=== PATIENT | female | born 1990 | race Caucasian/White ===

== ENCOUNTER 2021-02-08 08:33 | Emergency (ER) | payer OTHER, MEDICAID ==
[~2021-02-08] VITALS: Ht 167.6 cm; Wt 124.7 kg
[2021-02-08 09:04] LABS: ABSOLUTE BASOPHILS 0.1 thou/uL (0.0-0.2); ABSOLUTE EOSINOPHILS 0.1 thou/uL (0.0-0.7); ABSOLUTE LYMPHOCYTES 2.5 thou/uL (0.8-5.3); ABSOLUTE MONOCYTES 0.5 thou/uL (0.0-1.2); ABSOLUTE NEUTROPHILS 4.5 thou/uL (1.6-8.1); BASOPHILS 0.7 %; EOSINOPHILS 1.8 %; HEMOGLOBIN 9.8 gm/dL (12.0-15.0); LYMPHOCYTES 32.3 %; MCH 23.3 pg (26.0-34.0); MCHC 31.7 g/dL (28.0-37.0); MCV 73.4 fL (80.0-100.0); MONOCYTES 7.1 %; MPV 8.4 fl. (7.2-11.1); NUCLEATED RBCS 0 /100WBC; PLATELET COUNT* 295 thou/uL (150-400); POLYS 58.1 %; RBC 4.23 mil/uL (4.20-5.00); RDW-CV 16.1 % (10.5-14.5); WBC 7.7 thou/uL (4.0-11.0)
[2021-02-08 09:13] LABS: ANION GAP 8 mmol/L (7-16); BUN 17 mg/dL (7-18); CALCIUM 8.9 mg/dL (8.5-10.1); CHLORIDE 105 mmol/L (98-107); CO2 27 mmol/L (21-32); CREATININE 0.5 mg/dL (0.6-1.3); GLUCOSE 179 mg/dL (70-99); POTASSIUM 3.5 mmol/L (3.5-5.1); SODIUM 140 mmol/L (136-145)
[2021-02-08 09:17] LABS: APTT 23.6 Seconds (25.0-31.3); PROTIME 10.7 Seconds (9.20-11.50)
[2021-02-08 09:28] LABS: ALBUMIN 3.1 g/dL (3.4-5.0); ALKALINE PHOSPHATASE 100 U/L (46-116); LIPASE 124 U/L (73-393); MAGNESIUM 1.6 mg/dL (1.8-2.4); NT-PRO BRAIN NAT PEPTIDE 17 pg/mL (<300); SGOT 31 U/L (15-37); SGPT 57 U/L (30-65); TOTAL BILIRUBIN 0.4 mg/dL (<0.1-1.0); TOTAL PROTEIN 6.8 g/dL (6.4-8.2)
[2021-02-08 09:29] LABS: CK-MB MASS < 0.5 ng/mL (<0.5-3.6)
[2021-02-08] MEDS ORDERED: HYDROCODON-ACE1 EAC7 PO (11:31)
[2021-02-08] MEDS ORDERED: ZOFRAN ODT4 MG SUBLING (11:31)
[2021-02-08 11:42] VITALS: BP 97/31
--- NOTE | 2021-02-09 11:09 | EKG ---
[place] [address] ELECTROCARDIOGRAM REPORT Name: KARELY REYES Room: [facility]#: [id number] Admission: 02/08/21 Attend Phys: Discharge: 02/08/21 Date of : 89 Date of Service: 02/08/21 0837 Report #: [id number] THIS REPORT FOR: //name// [facility] ED Test Date: 2021-02-08 Test Time: 08:37:42 Pat Name: KARELY REYES Department: Room: Gender: F Pumper Gauger: ALEX : 1990 Requested By: Bravo Blanton Order Number: [id number] MD: Catracho Teague Measurements Intervals Protection Rate: 69 P: 31 MI: 154 QRS: 54 QRSD: 93 T: 39 QT: 427 QTc: 458 Interpretive Statements Sinus rhythm Baseline wander in lead(s) II,III,aVR,aVL,aVF,V1,V2,V4,V5,V6 No previous ECG available for comparison Electronically Signed On 02-09-2021 11:09:05 CDT by Catracho Teague [email or web address] <ELECTRONICALLY SIGNED> By: Catracho Teague MD, [facility] 02/09/21 1109 0837 0837 Catracho Teague MD, [facility] /EPI
== END 2021-02-08 11:42 | disposition home or self-care (01) ==
LOC: M.ERS 08:33
PROVIDERS: Family Medicine
DX: R07.89 Other chest pain (principal); R10.13 Epigastric pain

== ENCOUNTER 2021-02-11 16:26 | Inpatient (IN) | payer OTHER, MEDICAID ==
[~2021-02-11] VITALS: Ht 167.6 cm; Wt 122.5 kg
--- NOTE | ~2021-02-11 | OP ---
[facility] [address] [place] [address] OPERATIVE REPORT Name: KARELY REYES Room: [address] IN M.R.#: [id number] Admission: 02/11/21 Attend Phys: Lauri Pruitt Discharge: Date of : 89 Report #: [id number] THIS REPORT FOR: cc: Warner Mendenhall Kent DO ~ Patterson, Jonathan D. MD DATE OF SERVICE: 02/13/2021 PREOPERATIVE DIAGNOSIS: Acute cholecystitis with a dilated common bile duct. POSTOPERATIVE DIAGNOSES: Acute cholecystitis with a dilated common bile duct, choledocholithiasis. OPERATION: Laparoscopic cholecystectomy with intraoperative cholangiogram. SURGEON: Lauri Pruitt MD ANESTHESIA: General. ESTIMATED BLOOD LOSS: Minimal. SPECIMEN: Gallbladder. DESCRIPTION OF PROCEDURE: After informed consent was obtained, the patient was brought to the operating room and placed supine. SCDs were placed and working, preoperative antibiotics were administered, general anesthesia was induced. The abdomen was prepped and draped in the usual sterile fashion. A 10 mm incision was made above the umbilicus. Fascia was incised and a trocar was placed. Pneumoperitoneum was established. Three right upper quadrant 5 mm ports were placed. Gallbladder was grasped at the fundus and retracted cephalad. Infundibulum was grasped and retracted laterally. I dissected out the cystic duct and cystic artery. The cystic duct was clipped. A ductotomy was made. Cholangiogram catheter was inserted. Cholangiogram was performed. This demonstrated filling of the cystic duct, common bile duct, common hepatic duct, bifurcation of the hepatics. There were small filling defects in the distal common bile duct and the common bile duct was dilated. The catheter was then removed. The cystic duct was clipped and ligated leaving 2 clips on the remaining duct. The cystic artery was clipped and ligated leaving one clip on the remaining artery. Gallbladder was then taken off the liver bed with electrocautery. It was placed into an Endopouch and removed. Fascia was then closed with a [id number] 0 Vicryl. Skin was closed with 4-0 Monocryl. Incisions were dressed with Steri-Strips. COMPLICATIONS: [place] [address] OPERATIVE REPORT Name: KARELY REYES Room: [address]#: [id number] Admission: 02/11/21 Attend Phys: Lauri Pruitt Discharge: Date of : 89 Report #: [id number] DISPOSITION: The patient was taken to recovery in satisfactory condition. By: 1923 1937Lauri Pruitt MD /evan
[~2021-02-11 16:26] MED LIST: HYDROCODON-ACE1 EAC7 PO; ZOFRAN ODT4 MG SUBLING
[2021-02-11 16:58] LABS: URINE BILIRUBIN NEGATIVE (Negative); URINE BLOOD TRACE (Negative); URINE CLARITY CLEAR; URINE COLOR YELLOW; URINE GLUCOSE-RANDOM NEGATIVE (Negative); URINE KETONES NEGATIVE (Negative); URINE NITRITE-REFLEX NEGATIVE (Negative); URINE PROTEIN NEGATIVE (Negative); URINE SPECIFIC GRAVITY >= 1.030 (1.005-1.030)
[2021-02-11 16:59] LABS: URINE LEUKOCYTES-REFLEX 2+ (Negative)
[2021-02-11 17:02] LABS: ABSOLUTE EOSINOPHILS 0.1 thou/uL (0.0-0.7); ABSOLUTE LYMPHOCYTES 1.2 thou/uL (0.8-5.3); ABSOLUTE MONOCYTES 0.3 thou/uL (0.0-1.2); ABSOLUTE NEUTROPHILS 3.9 thou/uL (1.6-8.1); BASOPHILS 0.3 %; HEMATOCRIT 30.9 % (37.0-47.0); LYMPHOCYTES 21.6 %; MCH 23.8 pg (26.0-34.0); MCHC 32.6 g/dL (28.0-37.0); MCV 73.3 fL (80.0-100.0); MONOCYTES 5.9 %; MPV 8.2 fl. (7.2-11.1); NUCLEATED RBCS 0 /100WBC; PLATELET COUNT* 261 thou/uL (150-400); POLYS 71.2 %; RBC 4.21 mil/uL (4.20-5.00); RDW-CV 15.9 % (10.5-14.5); WBC 5.5 thou/uL (4.0-11.0)
[2021-02-11 17:03] LABS: BACTERIA-REFLEX 1-9 Few /HPF (None Seen); CASTS None Seen /LPF (None Seen); CRYSTALS None Seen /LPF (None Seen); MUCUS None Seen strn/LPF (None Seen); SQUAMOUS >10 Many /LPF (0-3); URINE RBC 0-2 Rare /HPF (0-2); URINE WBC-REFLEX >25 Many /HPF (0-5)
[2021-02-11 17:05] LABS: AMP/METHAMP Negative (Negative); BARBITURATES Negative (Negative); BENZODIAZEPINES Negative (Negative); COCAINE Negative (Negative); METHADONE Negative (Negative); OPIATES POSITIVE (Negative); PCP Negative (Negative); THC Negative (Negative)
[2021-02-11 17:06] LABS: CREATININE 0.6 mg/dL (0.6-1.3); POTASSIUM 3.5 mmol/L (3.5-5.1)
[2021-02-11 17:10] LABS: ALBUMIN 3.4 g/dL (3.4-5.0); TOTAL BILIRUBIN 0.5 mg/dL (<0.1-1.0); TOTAL PROTEIN 7.5 g/dL (6.4-8.2)
[2021-02-11 18:32] VITALS: BP 122/49
[2021-02-11 19:36] VITALS: BP 113/44
[2021-02-12 00:05] VITALS: BP 120/48
[2021-02-12 07:50] LABS: ALBUMIN 2.7 g/dL (3.4-5.0); CALCIUM 8.3 mg/dL (8.5-10.1); CREATININE 0.5 mg/dL (0.6-1.3); TOTAL BILIRUBIN 0.6 mg/dL (<0.1-1.0); TOTAL PROTEIN 6.4 g/dL (6.4-8.2)
[2021-02-12 08:05] VITALS: BP 132/72
[2021-02-12 15:59] VITALS: BP 114/48
[2021-02-12 20:35] VITALS: BP 134/67
[2021-02-13 00:28] VITALS: BP 101/59
[2021-02-13 07:30] VITALS: BP 118/63
[2021-02-13 12:15] VITALS: BP 132/72
[2021-02-13 15:31] VITALS: BP 127/72
[2021-02-13 19:50] VITALS: BP 111/58
[2021-02-14 00:16] VITALS: BP 127/44
[2021-02-14 04:35] VITALS: BP 133/52
[2021-02-14 15:30] VITALS: BP 134/65
[2021-02-14 20:00] VITALS: BP 148/74
[2021-02-14 20:44] VITALS: BP 148/74
[2021-02-15] VITALS (7 sets, daily range): BP systolic 133–158; BP diastolic 59–79
--- NOTE | 2021-02-17 13:08 | PATH ---
[address] [address] PATHOLOGY RPT PROCEDURE Name: KARELY REYES Room: [address] IN [facility].#: [id number] Admission: 02/11/21 Date of : [birth year] Discharge: 02/15/21 Report #: [id number] Path Case #: [id number] [facility] Accession Number: [id number] . 01 Material submitted: . gallbladder - GALLBLADDER . 01 Clinical history: . GALLBLADDER WITH CONTENTS ACUTE CHOLECYSTITIS LAPAROSCOPIC CHOLECYSTECTOMY WITH GRAMS . 02 Diagnosis: Gallbladder: - Chronic cholecystitis with abundance of eosinophils of unknown etiology. . (STEPHANIE:mml; 02/16/2021) [facility] 02/16/2021 1730 Local . 02 Electronically signed: . Sal Emerson MD, Pathologist NPI- [id number] . 01 Gross description: . Fixative: Formalin Labeled: Gallbladder Specimen received: Intact gallbladder Dimensions: 10.7 x 4.7 x 3.5 cm Serosa: Blue-santacruz Mucosa: Velvety, bile-stained Average wall thickness: 0.1 cm Calculi: Not identified Abnormalities: None identified . Cardiac/Vascular Sonographer body, fundus, and the cystic duct margin in A1. (CAA; 02/15/2021) [facility] 02/15/2021 1234 Local . 02 Pathologist provided ICD-10: K81.1 . 02 CPT . 491992 Specimen Comment: A courtesy copy of this report has been sent to [phone] Specimen Comment: Report sent to Performed at: [address] [id number] [place] [id number] PATHOLOGY RPT PROCEDURE Name: KARELY REYES Room: [address]#: [id number] Admission: 02/11/21 Date of : [birth year] Discharge: 02/15/21 Report #: [id number] Path Case #: [id number] MD Wm Shepard MD Phone: [phone] Performed at: 02 [address], [place] [id number] MD Sal Emerson MD Phone: [phone]
== END 2021-02-15 13:47 | disposition home or self-care (01) | DRG 419 ==
LOC: M.ERS 16:26 → M.TBA-ER 18:00 → M.ORTHSURG 18:00
PROVIDERS: Family Medicine; ADMIT Surgery; ATTEND Surgery
DX: K80.42 Calculus of bile duct with acute cholecystitis without obstruction (principal); Z20.822 Contact with and (suspected) exposure to COVID-19; Z79.899 Other long term (current) drug therapy